=== PATIENT | male | born 1980 | race Caucasian/White ===

== ENCOUNTER 2019-06-03 05:52 | Day surgery (SDC) | payer BC ==
[2019-06-03] MEDS ORDERED: Lactated Ringers 1,000 ML IV SCH (06:30)
[2019-06-03] MEDS ORDERED: DIPRIVAN 200 MG/20 ML IV ONE ×2 (07:55→10:23)
[2019-06-03] MEDS ORDERED: Versed 2 MG/2 ML Injection ONE (07:55)
[2019-06-03 09:21] VITALS: O2SAT 94
[2019-06-03 09:25] VITALS: BP 152/96; PULSE 75
--- NOTE | 2019-06-03 14:32 | OP ---
SURGERY DATE/TIME: 06/03/2019 0755 PREOPERATIVE DIAGNOSIS: Left upper quadrant pain radiating to the flank. POSTOPERATIVE DIAGNOSIS: Mild gastritis. PROCEDURE: Esophagogastroduodenoscopy with cold forceps of the gastric antrum. SURGEON: Dr. Caceres. ANESTHESIA: Medications were given by the anesthesia department. BRIEF HISTORY: The patient is a 38 year old white male patient who presents now for complaints of upper quadrant abdominal pain radiating to the flank and into the back. The patient reports it has been going on for the past eight months. He has been on Zantac with no relief. He has been taking some nonsteroidal anti-inflammatory and this has also helped out with the discomfort. He reports he had a gallbladder ultrasound which was essentially negative and had his backaches resolve. The patient was felt the need to have endoscopic evaluation and he appraised of the risks of the procedure including the risk of perforation, phlebitis, untoward reaction to medication, bleeding and missed lesions. The patient verbalized his understanding and desired to have the procedure performed. DESCRIPTION OF PROCEDURE: The patient was given the medications by the anesthesia department. He had continuous pulse oximetry, ECG monitoring, intermittent blood pressure monitoring and tidal CO2 monitoring during the examination. He was placed in the left lateral decubitus position. A bite block was placed. The flexible Olympus gastroscope was used to intubate the oropharynx. A view of the larynx was obtained and was normal. The scope was easily passed in the esophagus which was normal throughout its length. The stomach was entered where normal gastric rugal folds were seen and these distended nicely with insufflation of air. The scope was passed along the greater curvature of the stomach to the antrum. The pylorus was encountered and intubated. The duodenum inspected and found to be normal. The scope is withdrawn towards the stomach. Again, a retroflex view was obtained of the lesser curvature, fundus and cardia regions of the stomach and these appeared to be normal. The scope was then redirected towards the gastric antrum and biopsies were obtained to rule out the presence of Helicobacter pylori-type organisms. The scope was then removed from the patient who tolerated the procedure well and was sent back to [facility] good condition.
== END 2019-06-03 09:15 | disposition home or self-care (01) ==
LOC: SDC 05:52 → EDSTATUS 10:11
PROVIDERS: ATTEND Family Medicine
DX: K29.70 Gastritis, unspecified, without bleeding (principal)
CPT/HCPCS: 88305; J2250; J2704